=== PATIENT | female | born 1940 | race Two or more races ===

== ENCOUNTER 2021-08-15 10:23 | Emergency (ER) | payer OTHER ==
[~2021-08-15] VITALS: Ht 149.9 cm; Wt 63.5 kg
[2021-08-15] MEDS ORDERED: GLUMETZA500 MG PO (10:46)
[2021-08-15] MEDS ORDERED: NAMENDA XR21 MG PO (10:47)
[2021-08-15] MEDS ORDERED: ULTRAM50 MG PO (12:38)
== END 2021-08-15 12:57 | disposition home or self-care (01) ==
LOC: ER 10:23
DX: S42.352A Displaced comminuted fracture of shaft of humerus, left arm, initial encounter for closed fracture (principal); W18.30XA Fall on same level, unspecified, initial encounter; Y92.59 Other trade areas as the place of occurrence of the external cause